=== PATIENT | male | born 1940 | race Caucasian/White ===

== ENCOUNTER 2017-08-20 04:56 | Inpatient (IN) ==
[2017-08-14 15:16] LABS: Basophils # (Auto) 0 K/mcL (0.0-0.3); Basophils % (Auto) 0.4 % (0.0-2.0); Eosinophils # (Auto) 0.1 K/mcL (0.0-0.7); Granulocytes % (Auto) 64.3 % (38.0-78.0); Lymphocytes # (Auto) 1.8 K/mcL (1.5-4.8); Mean Cell Volume 90.5 fL (80.0-100.0); Mean Corpuscular HGB Conc 34.1 g/dL (31.0-36.0); Mean Corpuscular Hemoglobin 30.9 pg (26.0-34.0); Monocytes # (Auto) 0.5 K/mcL (0.1-0.9); Monocytes % (Auto) 7.3 % (1.0-12.0); Platelet Count 227 K/mcL (140-440); RBC 4.83 M/mcL (4.50-5.90); Red Cell Distribution Width 13.7 % (11.5-14.5)
[2017-08-14 15:37] LABS: Blood Urea Nitrogen 24 mg/dl (8-23)
[2017-08-14 15:57] LABS: Appearance,Urine CLEAR; Bilirubin,Urine NEG (NEG); Color,Urine YELLOW; Glucose,Urine (UA) NEGATIVE (NEG); Leukocyte Esterase,Urine NEG /uL (NEG); Nitrate,Urine NEG (NEG); Protein,Urine NEG (NEG); Specific Gravity,Urine 1.027 (1.000-1.035); Urine Blood NEG mg/dL (<0.03); Urobilinogen,Urine NEG (NEG)
[2017-08-20] MEDS ORDERED: PREGABALIN 75 MG CAPSULE PO SCH (06:00)
[2017-08-20] MEDS ORDERED: ceFAZolin 1 GM VIAL IV SCH (06:00)
[2017-08-20] MEDS ORDERED: CELECOXIB 200 MG CAPSULE PO SCH (06:00)
[2017-08-20] MEDS ORDERED: ACETAMINOPHEN 500 MG TABLET PO SCH (06:00)
[2017-08-20] MEDS ORDERED: oxyCODONE 10 MG TAB.ER.12H PO SCH (06:00)
[2017-08-20] MEDS ORDERED: PROPOFOL 200 MG/20 ML VIAL IV ONE (07:55)
[2017-08-20] MEDS ORDERED: ROPIVACAINE HCL/PF 20 ML VIAL IJ ONE (07:55)
[2017-08-20] MEDS ORDERED: ONDANSETRON 4 MG/2 ML VIAL IV ONE (07:55)
[2017-08-20] MEDS ORDERED: LIDOCAINE HCL/PF 100 MG/5 ML SYRINGE IV ONE (07:55)
[2017-08-20] MEDS ORDERED: ePHEDrine 50 MG/ML AMPUL IV ONE (07:55)
[2017-08-20] MEDS ORDERED: DEXAMETHASONE 10 MG/ML VIAL IV ONE (07:55)
[2017-08-20] MEDS ORDERED: TRANEXAMIC ACID 1,000 MG/10 ML VIAL IV ONE (07:55)
[2017-08-20] MEDS ORDERED: MIDAZOLAM 5 MG/5 ML VIAL IV ONE (07:55)
[2017-08-20] MEDS ORDERED: KETOROLAC 30 MG, ROPIVACAINE HCL/PF 49.5 ML, EPINEPHrine 0.5 MG, 0.9 % SODIUM CHLORIDE ... IJ ONE (08:00)
[2017-08-20] MEDS ORDERED: GENTAMICIN SULFATE 800 MG/20 ML VIAL IR ONE (08:13)
[2017-08-20] MEDS ORDERED: MEPERIDINE 25 MG/ML SYRINGE IV PRN (09:50)
[2017-08-20] MEDS ORDERED: METHOCARBAMOL 1,000 MG/10 ML VIAL IV PRN (09:50)
[2017-08-20] MEDS ORDERED: PROMETHAZINE 25 MG/ML VIAL IV PRN (09:50)
[2017-08-20] MEDS ORDERED: LACTATED RINGERS 250 ML IV PRN (09:50)
[2017-08-20] MEDS ORDERED: fentaNYL 100 MCG/2 ML VIAL IV PRN (09:50)
[2017-08-20] MEDS ORDERED: diphenhydrAMINE 50 MG/ML VIAL IV PRN (09:50)
[2017-08-20] MEDS ORDERED: BENZOCAINE/MENTHOL 1 LOZENGE PO PRN ×2 (09:50→09:57)
[2017-08-20] MEDS ORDERED: IPRATROPIUM/ALBUTEROL 3 ML AMPUL.NEB NEB PRN (09:50)
[2017-08-20] MEDS ORDERED: FLUMAZENIL 0.1 MG/ML ML IV PRN (09:50)
[2017-08-20] MEDS ORDERED: ONDANSETRON 4 MG/2 ML VIAL IV PRN ×2 (09:50→09:57)
[2017-08-20] MEDS ORDERED: NALOXONE HCL 0.4 MG/ML VIAL IV PRN (09:50)
[2017-08-20] MEDS ORDERED: MAGNESIUM HYDROXIDE 30 ML ORAL.SUSP PO PRN (09:57)
[2017-08-20] MEDS ORDERED: HYDROmorphone 2 MG/ML SYRINGE IV PRN (09:57)
[2017-08-20] MEDS ORDERED: TRANEXAMIC ACID 1,000 MG/10 ML VIAL IV SCH (09:57)
[2017-08-20] MEDS ORDERED: FLEETS ADULT ENEMA PR PRN (09:57)
[2017-08-20] MEDS ORDERED: BISACODYL 10 MG SUPP.RECT PR PRN (09:57)
[2017-08-20] MEDS ORDERED: POLYETHYLENE GLYCOL 3350 17 GM PACKET PO PRN (09:57)
[2017-08-20] MEDS ORDERED: ACETAMINOPHEN 325 MG TABLET PO PRN ×2 (09:57→09:59)
--- NOTE | 2017-08-20 09:57 | Brief Operative Note ---
Date of procedure: 08/20/17 Pre-op diagnosis: Left knee djd severe Post-op diagnosis: same Procedure: left robotic tka Grafts/Implants: Yes Anesthesia: PEDRO Surgeon: Jaime Telles [facility] Magistrate: Ankit Cantu Estimated blood loss (cc): 50 Tourniquet Time (Minutes): 82 Specimens Removed/Pathology: none sent Condition: stable Disposition: PACU
[2017-08-20] MEDS ORDERED: LACTATED RINGERS 1,000 ML IV SCH (10:00)
--- NOTE | 2017-08-20 10:37 | XRay Report ---
CLINICAL INFORMATION: Postop total knee prostheses COMPARISON: None. FINDINGS: Total knee prostheses is anatomically aligned. There is no osseous abnormality. Periarticular soft tissue swelling - seen as expected. IMPRESSION: Negative Interpreted and Authenticated by: Mick Resendez 08/20/17
[2017-08-20] MEDS: 0.45 % SODIUM CHLORIDE 1,000 ML IV SCH ×2 (11:14→20:25)
[2017-08-20] MEDS: HYDROcodone/APAP 10/325MG TABLET PO PRN ×3 (12:29→21:05)
[2017-08-20] MEDS: KETOROLAC 15 MG/ML VIAL IV SCH ×3 (12:30→23:46)
[2017-08-20] MEDS: 0.9 % SODIUM CHLORIDE 10 ML SYRINGE IV SCH ×2 (16:26→20:28)
[2017-08-20] MEDS: ceFAZolin 1 GM VIAL IV SCH ×2 (17:03→23:46)
[2017-08-20] MEDS: DOCUSATE SODIUM 100 MG CAPSULE PO SCH (20:25)
[2017-08-20] MEDS: ASPIRIN 325 MG ENTERIC COATED TABLET PO SCH (20:26)
[2017-08-20] MEDS ORDERED: TEMAZEPAM 15 MG CAPSULE PO PRN (21:00)
[2017-08-20] MEDS ORDERED: SENNOSIDES 1 TABLET PO SCH (21:00)
[2017-08-20] MEDS ORDERED: traMADol 50 MG TABLET PO PRN (21:00)
[2017-08-21] MEDS: KETOROLAC 15 MG/ML VIAL IV SCH ×2 (05:51→13:36)
[2017-08-21] MEDS: 0.45 % SODIUM CHLORIDE 1,000 ML IV SCH (06:49)
--- NOTE | 2017-08-21 07:31 | Orthopedic Progress Note ---
Subjective Patient information: Note initiated : 08/21/17 at 7:30 am Service Date, if different from initiated Date: [] Patient: Mario Alberto Noel 77 y/o M admitted on 08/20/17 for Left Total Knee Arthroplasty Kenneth. Chief Complaint: [Pt is stable this morning on post operative day 1 without any significant concerns or complaints. Patients vital signs have remained stable. Patients dressing is dry and exhibits a grossly intact neurovascular and neuromotor exam. Patients 10 point ROS is otherwise negative. ] Objective Vital signs: Vital Signs Temp Pulse Resp BP Pulse Ox 08/21/17 03:22 96.9 F L 58 L 18 124/58 97 08/21/17 03:21 97 08/21/17 00:00 97.4 F 62 18 115/61 96 08/20/17 20:00 97.7 F 78 20 124/63 96 08/20/17 17:00 94 08/20/17 16:55 97.8 F 128/69 94 08/20/17 13:57 96 08/20/17 11:44 161/75 99 08/20/17 11:30 141/98 97 08/20/17 11:14 135/71 97 08/20/17 11:00 131/65 96 08/20/17 10:45 138/68 96 08/20/17 10:44 138/75 96 08/20/17 10:35 98.1 F 73 13 135/61 97 08/20/17 10:32 73 12 127/63 96 08/20/17 10:27 72 14 123/61 94 08/20/17 10:22 79 15 124/62 98 08/20/17 10:17 66 13 118/62 96 08/20/17 10:12 98.5 F 66 13 123/61 96 Intake and Output 08/20/17 08/21/17 08/21/17 21:59 05:59 13:59 Intake Total 2198 / 2198 980 / 980 Output Total 525 / 525 1025 / 1025 Balance 1673 / 1673 -45 / -45 Intake: IV 918 / 918 Sodium Chloride 0.45% 1,000 ml 918 / 918 @ 100 mls/hr IV .Q10H RYLEE Rx#: [id number] Oral 1280 / 1280 980 / 980 Output: Void Amount 525 / 525 1025 / 1025 Other: Meal Dinner Percent of Meal Consumed 100% # Voids 1 1 Weight 265 lb Intake & Output: Intake & Output 08/20/17 08/21/17 08/21/17 21:59 05:59 13:59 Intake Total 2198 / 2198 980 / 980 Output Total 525 / 525 1025 / 1025 Balance 1673 / 1673 -45 / -45 Weight 265 lb Intake: IV 918 / 918 Sodium Chloride 0.45% 1,000 ml 918 / 918 @ 100 mls/hr IV .Q10H RYLEE Rx#: [id number] Oral 1280 / 1280 980 / 980 Output: Void Amount 525 / 525 1025 / 1025 Other: Meal Dinner Percent of Meal Consumed 100% # Voids 1 1 Incision: Yes healing Dressing: Yes dry Weight bearing status: full Neurological exam IM: Yes motor sensory intact, Yes neurovascular intact Extremities exam IM: Yes Foot pink and warm, Yes neurovascular intact - Labs CBC & BMP: 08/21/17 05:00 08/14/17 13:39 Labs: Orthopedic Labs 08/14/17 13:39 PT 13.3 INR 1.0 APTT 31 08/21/17 08/14/17 05:00 13:39 Hgb 14.9 Hct 34.8 L 43.7 Assessment and Plan (1) Hx of total knee arthroplasty The patient has been educated regarding dressing care, Physical Therapy recommendations, home exercises, restrictions, and follow up appointments. The patient has had all necessary DME prescribed. The patient has remained stable during their hospital course. The patient was discharge with a stable exam. Status: Acute
--- NOTE | 2017-08-21 07:34 | Discharge Summary ---
Ortho Discharge - TKA - Patient Instructions Diet: Regular Diet Activity: activity as tolerated, weight bearing as tolerated Total Knee Protocol: For Total Knee: Start ROM GLEN with stationary bike or rocking chair. Work on gaining full extension of knee. Posterior dislocation precautions provided. Hip abductor strengthening and gait training instructions provided. Apply Cryocuff as instructed. Dressing Care: May shower in 2 days Patient Education: Total Knee Replacement (DC) Additional Instructions: CPM for home use. - Problem Maintenance (1) Hx of total knee arthroplasty Status: Acute - Follow Up Plan Follow Up Appointments: Jaime Telles MD [Physician] - 09/04/17 9:20 am Disposition: Home, Self-Care Prognosis: Good Rehab Potential: Good I certify that the patient requires SNF services: No Overall status at discharge: patient is progressing back to baseline - Orders For Discharge Prescriptions: Aspirin [Ecotrin] 325 mg PO BID #60 tab.ec Docusate Sodium [Colace] 100 mg PO BID #60 cap HYDROcodone/APAP 10/325MG [[place] 10/325Mg] 1 - 2 tab PO Q4HP PRN #75 tab PRN Reason: Pain Level 3-6
--- NOTE | 2017-08-21 07:48 | Operative Note ---
DATE OF OPERATION: 08/20/2017 PREOPERATIVE DIAGNOSIS: Left knee severe arthritis of all three compartments with a flexion contracture of about 20 degrees. 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 PROCEDURE: Left total knee arthroplasty using the CHANTALE robot. SURGEON: Jaime Telles MD SEED EXPERT: Ankit Cantu PA-C ANESTHESIA: General LMA anesthesia. COMPLICATIONS: None. TOTAL TOURNIQUET TIME: 82 minutes. COMPLICATIONS: None. DESCRIPTION OF PROCEDURE: The patient was brought to the operating room and put to sleep with general LMA anesthesia. Once asleep, the patient had the left leg sterilely prepped and draped and confirmed as the operative site by the timeout using initials, consent form x-rays. Once done, we then made a midline incision, a mid vastus approach performed. We inspected all compartments of the knee which revealed obviously severe arthritis with multiple loose bodies within the knee. These loose bodies were removed as well as osteophytes and two pins above and below the knee replaced. We registered the center hip rotation, the medial and lateral malleoli. A femoral and tibial pin was placed. We registered these and 30 points on the femur and tibia were registered. We then balanced the knee, both at 15 and 90 degrees. Once perfectly balanced the implant had been adjusted per the patient's anatomy and we then irrigated thoroughly and then brought in the robot and made the distal femoral cut, posterior chamfer cut. We changed the saw blade and then made the anterior and posterior and chamfer cuts. Once this was done, we made the tibial cut removing the remnants of the meniscus. Once done, we then placed the trial setting the tibial baseplate with external rotation from the robot as well as the femoral component. It seemed to balance very nicely with a 9 mm poly insert. Very tight in flexion, we released the medial collateral ligament until we balanced knee and soft tissue posterior and laterally were released. We irrigated thoroughly and removed osteophytes posteriorly. Once done, I then cemented into place the tibial baseplate and femur. We prepared the patella. It measured a total thickness of 28. We cut this to 17 mm and cemented into place a 36 mm patellar button. I irrigated thoroughly and then closed the mid vastus approach with #1 Stratafix x2 stitches. Skin was closed with 2-0 Vicryl and adhesive closure. The knee had been thoroughly irrigated on multiple occasions removing any loose debris. The patient tolerated this well. There were no complications. Tourniquet time was 82 minutes. RBH:kj Job ID: [id number] Doc ID: [id number] Jaime Telles MD
[2017-08-21] MEDS: ASPIRIN 325 MG ENTERIC COATED TABLET PO SCH (08:30)
[2017-08-21] MEDS: DOCUSATE SODIUM 100 MG CAPSULE PO SCH (08:31)
[2017-08-21] MEDS: 0.9 % SODIUM CHLORIDE 10 ML SYRINGE IV SCH (08:35)
[2017-08-21] MEDS ORDERED: VITAMIN B COMPLEX 1 CAPSULE PO SCH (09:00)
[2017-08-21] MEDS ORDERED: VITAMIN E (DL,TOCOPHERYL ACET) 400 UNIT CAPSULE PO SCH (09:00)
[2017-08-21] MEDS ORDERED: GLUCOSAMINE/CHONDROITIN SULF A 1 CAP CAPSULE PO SCH (09:00)
[2017-08-21] MEDS ORDERED: SIMVASTATIN 20 MG TABLET PO SCH (09:00)
[2017-08-21] MEDS ORDERED: FISH OIL 1,000 MG CAPSULE PO SCH (09:00)
[2017-08-21] MEDS ORDERED: BISOPROLOL 5 MG TABLET PO SCH (09:00)
[2017-08-21] MEDS ORDERED: LOSARTAN 50 MG TABLET PO SCH (09:00)
[2017-08-21] MEDS ORDERED: MULTIVIT,THER IRON,CA,FA & MIN 1 TABLET PO SCH (09:00)
[2017-08-21] MEDS ORDERED: HYDROCHLOROTHIAZIDE 25 MG TABLET PO SCH (09:00)
== END 2017-08-21 15:15 | disposition home or self-care (01) | DRG 470 ==
LOC: MEDSUR 04:56
PROVIDERS: ADMIT Orthopaedic Surgery; ATTEND Orthopaedic Surgery